=== PATIENT | female | born 1970 | race Caucasian/White ===

== ENCOUNTER 2018-01-28 02:35 | Day surgery (SDC) | payer OTHER ==
[~2018-01-28 02:35] MED LIST: AMIT50; ANTI-INFLAMMATORY; BIRTH CONTROL PILLS; CYCL10; DIET PILL; HYDACE5 PO; LEVSOD50 PO; NITR100CA PO; OMEP20ER PO
== END 2018-01-28 22:41 | disposition home or self-care (01) ==
LOC: MOI US 02:35
PROC: BH01ZZZ Plain Radiography of Left Breast (ICD-10-PCS; principal; 2018-01-28)
DX: C50.412 Malignant neoplasm of upper-outer quadrant of left female breast (principal)
CPT/HCPCS: 19285; 77065; G0279

== ENCOUNTER 2018-02-07 07:59 | Day surgery (SDC) | payer OTHER ==
[~2018-02-07] VITALS: Ht 170.2 cm; Wt 124.3 kg
[~2018-02-07 07:59] MED LIST changes: +CYCL10 PO; +HYDPAM25 PO; +Hair, Skin & N1 EACH PO; +IBUP800 PO; +LEVSOD150 PO; +Omeprazole20 M1 PO; +TRAZ100 PO; +Ziac 10-6.25 M1 EACH PO
--- NOTE | 2018-02-07 09:46 | NUR ---
PT ADMITTED TO [facility]. AGREES WITH PLANNED SURGERY. MEDS, ALLERGIES AND HX REVIEWED. LUNG SOUNDS CLEAR.
--- NOTE | 2018-02-07 11:15 | NUR ---
02/07/18 1115 Emil Crowe ASSUMED CARE OF PATIENT
--- NOTE | 2018-02-07 13:28 | NUR ---
ASSUMED PT CARE. LEFT CHEST WITH DERMABOND INTACT. NO ACUTE BLEEDING-MILD BRUISING AND HEMATOMA NOTED. BREAST BINDER IN PLACE. PT REPORTS 08/17 INCISIONAL PAIN-MED WITH FENTANYL 50 MCG IVP X 1. SEE EMAR.
--- NOTE | 2018-02-07 14:40 | NUR ---
Patient up to Ambulate independently. Gait steady.DERMABOND AND GAUZE TO LEFT BREAST C/D/I. PT STATES PAIN 5/10 WHICH IS A TOLERABLE LEVEL FOR HER. Discharge instructions reviewed with patient. Patient verbalizes understanding. Copy given to patient to take home. Discharged via wheelchair to private car for ride home.
== END 2018-02-07 14:40 | disposition home or self-care (01) ==
LOC: RAD 07:59 → ORSCMMR 08:00 → RAD 08:30 → NM 09:00 → RAD 14:40
DX: C50.412 Malignant neoplasm of upper-outer quadrant of left female breast (principal)
CPT/HCPCS: 38792; 76098; 88304; 88307; 88342; A9520; J0690; J1100; J1885; J2405; J3010; J7120; Q9968

== ENCOUNTER 2018-04-19 12:46 | Day surgery (SDC) | payer OTHER ==
[~2018-04-19] VITALS: Ht 170.2 cm; Wt 122.7 kg
--- NOTE | 2018-04-19 13:41 | NUR ---
04/19/18 1341 Maricarmen Borges DISCUSSION WITH DR FLOWER ABOUT CONSCIOUS SEDATION THAT WAS ORDERED OR OK TO USE PROPOFOL. DR FLOWER UNAWARE OF WHERE THE MESSAGE ON THE SCHEDULE CAME FROM REGARDING CONSCIOUS SEDATION. I CONFIRMED WITH DR FLOWER THAT I AM COMFORTABLE GIVING PROPOFOL SEDATION AND HE AGREES TO PROCEED WITH THIS PLAN.
--- NOTE | 2018-04-19 15:26 | NUR ---
04/19/18 1526 Aj West NURSE ASSISTED PATIENT WALK OUT TO HER RIDE HOME.
== END 2018-04-19 15:18 | disposition home or self-care (01) ==
LOC: ORSCSDS 12:46
PROVIDERS: Surgery
PROC: 0DJD8ZZ Inspection of Lower Intestinal Tract, Via Natural or Artificial Opening Endoscopic (ICD-10-PCS; principal; 2018-04-19 14:00)
DX: R19.7 Diarrhea, unspecified (principal); Z15.09 Genetic susceptibility to other malignant neoplasm; Z84.81 Family history of carrier of genetic disease; Z85.3 Personal history of malignant neoplasm of breast; E03.9 Hypothyroidism, unspecified; Z87.891 Personal history of nicotine dependence; E66.01 Morbid (severe) obesity due to excess calories; Z68.41 Body mass index [BMI] 40.0-44.9, adult; Z79.899 Other long term (current) drug therapy
CPT/HCPCS: J2250; J7120

== ENCOUNTER 2018-07-18 07:27 | Day surgery (SDC) | payer OTHER ==
--- NOTE | 2018-07-18 08:20 | NUR ---
History, Chart, Medications and Allergies reviewed before start of procedure. Lungs clear T/O to Auscultation.
--- NOTE | 2018-07-18 12:00 | NUR ---
PT ARRIVED TO ROOM 230 FROM PACU PT IS S/P KENDRA PT REPORTS PAIN 6/10 PT HAS STERI STRIPS TO ABD WITH SCANT SEROSANG DRAINAGE PT HAS SEBASTIEN PAD ALSO SCANT DRAINAGE PT DENIES NAUSEA CL GIVEN TO START PT ORIENTED TO ROOM LAYOUT
--- NOTE | 2018-07-18 13:33 | NUR ---
PT STATED THAT THE PO PAIN MEDS STILL HAVE NOT HELPED THE PAIN IV DILAUDID GIVEN PT S/O AT BEDSIDE
--- NOTE | 2018-07-18 16:12 | NUR ---
07/18/18 1612 Andra Carrillo CHART AUDITS. ENTERED [place] RN INSTRUCTIONS.
--- NOTE | 2018-07-18 17:30 | NUR ---
pt dangle to edge of the bed to eat dinner
[2018-07-19 04:18] LABS: BASOPHILS ABSOLUTE AUTO 0.02 K/mm3 (0.00-0.23); BASOPHILS PERCENT AUTO 0 % (0-2); EOSINOPHILS PERCENT AUTO 0 % (0-6); Hematocrit 36.3 % (33.0-51.0); Hemoglobin 11.9 g/dL (11.5-16.0); IMMATURE GRAN ABSOLUTE AUTO 0.05 K/mm3 (0.00-0.10); IMMATURE GRAN PERCENT AUTO 1 % (0-1); LYMPHOCYTES ABSOLUTE AUTO 0.48 K/mm3 (0.84-5.20); LYMPHOCYTES PERCENT AUTO 6 % (21-46); MONOCYTES ABSOLUTE AUTO 0.43 K/mm3 (0.16-1.47); MONOCYTES PERCENT AUTO 5 % (4-13); Mean Corpuscular HGB 28.7 pg (26.0-34.0); Mean Corpuscular HGB Conc 32.8 g/dL (31.5-36.5); Mean Corpuscular Volume 88 fL (80-100); Mean Platelet Volume 9.7 fL (9.1-12.4); NEUTROPHILS ABSOLUTE AUTO 7.24 K/mm3 (1.96-9.15); NEUTROPHILS PERCENT AUTO 88 % (41-73); Platelet Count 223 K/mm3 (150-400); RDW Coefficient Variation 13.9 % (11.7-14.2); RDW Standard Deviation 44.4 fL (35.1-46.3); Red Blood Cell Count 4.15 M/mm3 (3.80-5.20); White Blood Cell Count 8.22 K/mm3 (4.00-11.30)
--- NOTE | 2018-07-19 07:15 | NUR ---
DR Celine RAPP BY TO SEE PT SITTING UP ON EDGE OF THE BED [place] REMOVED PASSING FLATUS MEDS GIVEN PAIN MIN 2-04/17
--- NOTE | 2018-07-19 07:30 | NUR ---
SUMMARY PT WITH ONLY SCANT VAG BLD TONIGHT. [place] WITH CLR YELLOW THIS SHIFT. PT WITH NO C/O NAUSEA. UP IN HALLS TONIGHT WITH HARP MAKER. POSSIBLE HOME TODAY.
--- NOTE | 2018-07-19 07:50 | NUR ---
pt voided pvr min
[2018-07-19] MEDS ORDERED: Norco 5-325 Ta1 EACH PO (08:16)
--- NOTE | 2018-07-19 09:07 | NUR ---
pt in the shower
--- NOTE | 2018-07-19 09:50 | NUR ---
pt out of shower had scant void discussed with pt to call with next void and we will bladder scan again if unable to empty will poss place cath
--- NOTE | 2018-07-19 10:53 | NUR ---
PT VOIDED 100 ML PVR 5 ML WILL GO OVER DISCHARGE PAPERS OK TO GO HOME
--- NOTE | 2018-07-19 11:10 | NUR ---
discharge instructions reviewed rx given
--- NOTE | 2018-07-19 11:30 | NUR ---
amb to car no acute changes to cond
== END 2018-07-19 11:31 | disposition home or self-care (01) ==
LOC: ORSCMMR 07:27 → ORD 09:00 → SURS 12:40 → ORSCMMR 07-19 11:31
PROVIDERS: Obstetrics & Gynecology
PROC: 0UT9FZZ Resection of Uterus, Via Natural or Artificial Opening With Percutaneous Endoscopic Assistance (ICD-10-PCS; principal; 2018-07-18 09:00)
PROC: 0UT2FZZ Resection of Bilateral Ovaries, Via Natural or Artificial Opening With Percutaneous Endoscopic Assistance (ICD-10-PCS; principal; 2018-07-18 09:00)
PROC: 0UT7FZZ Resection of Bilateral Fallopian Tubes, Via Natural or Artificial Opening With Percutaneous Endoscopic Assistance (ICD-10-PCS; principal; 2018-07-18 09:00)
DX: Z15.09 Genetic susceptibility to other malignant neoplasm (principal); Z85.3 Personal history of malignant neoplasm of breast; E03.9 Hypothyroidism, unspecified; K21.9 Gastro-esophageal reflux disease without esophagitis; Z79.899 Other long term (current) drug therapy
CPT/HCPCS: 36415; 85025; 88108; 88307; A9270-GY; J0690; J1100; J1170; J1885; J2250; J2405; J2704; J2710; J3010; J7120

== ENCOUNTER 2019-04-13 11:40 | Day surgery (SDC) | payer OTHER ==
[~2019-04-13] VITALS: Ht 170.2 cm; Wt 122.4 kg
[~2019-04-13 11:40] MED LIST changes: +ANAS1; +GABA600; +Norco 5-325 Ta1 EACH PO; +SYNTHROID175 MC1
== END 2019-04-13 14:24 | disposition home or self-care (01) ==
LOC: ORSCSDS 11:40
PROVIDERS: Surgery
PROC: 0DBH8ZX Excision of Cecum, Via Natural or Artificial Opening Endoscopic, Diagnostic (ICD-10-PCS; principal; 2019-04-13 13:00)
DX: Z84.81 Family history of carrier of genetic disease (principal); E03.9 Hypothyroidism, unspecified; K21.9 Gastro-esophageal reflux disease without esophagitis; F32.9 Major depressive disorder, single episode, unspecified; Z79.899 Other long term (current) drug therapy
CPT/HCPCS: 88305; J2250; J2704; J7120

== ENCOUNTER 2020-08-22 09:22 | Day surgery (SDC) | payer OTHER ==
[~2020-08-22] VITALS: Ht 170.2 cm; Wt 125.6 kg
[~2020-08-22 09:22] MED LIST changes: +ANASTROZOLE1 M4 PO; +BISOPROLOL-HCT1 EAC1 PO; +EUTHYROX175 MCG PO; +GABA300 PO; +GABAPENTIN600 MG PO; +HYDHCL25 PO; +TRAZ50 PO
--- NOTE | 2020-08-22 12:34 | NUR ---
08/22/20 1234 DANITA FLOWER ANESTHESIA CONSULT WITH AND CONCLUDED NURSE SEDATION WOULD BE ACCEPTIBLE.
--- NOTE | 2020-08-22 12:35 | NUR ---
08/22/20 DANITA DUENAS WAS CONSULTED ABOUT HYPTERTENSION DURING END OF PROCEDURE.
== END 2020-08-22 12:38 | disposition home or self-care (01) ==
LOC: ORSCSDS 09:22
PROVIDERS: Surgery
PROC: 0DJD8ZZ Inspection of Lower Intestinal Tract, Via Natural or Artificial Opening Endoscopic (ICD-10-PCS; principal; 2020-08-22 11:15)
DX: Z12.11 Encounter for screening for malignant neoplasm of colon (principal); Z15.09 Genetic susceptibility to other malignant neoplasm; I10 Essential (primary) hypertension; Z87.891 Personal history of nicotine dependence; E66.01 Morbid (severe) obesity due to excess calories; Z68.41 Body mass index [BMI] 40.0-44.9, adult; Z79.899 Other long term (current) drug therapy
CPT/HCPCS: J0330; J0461; J2250; J2405; J2704; J7120

== ENCOUNTER 2022-07-03 06:11 | Day surgery (SDC) | payer OTHER ==
[~2022-07-03] VITALS: Ht 170.2 cm; Wt 124.9 kg
[2022-07-03] MEDS ORDERED: ESCI10 (06:33)
[2022-07-03] MEDS ORDERED: Calcium Carbon500 MG (06:34)
[2022-07-03] MEDS ORDERED: BUPR75 (06:34)
[2022-07-03] MEDS ORDERED: VITAMIN D310 MC4 (06:34)
[2022-07-03 08:55] VITALS: BP 138/85
== END 2022-07-03 08:57 | disposition home or self-care (01) ==
LOC: ORSCSDS 06:11
PROVIDERS: Surgery
PROC: 0DB48ZX Excision of Esophagogastric Junction, Via Natural or Artificial Opening Endoscopic, Diagnostic (ICD-10-PCS; principal; 2022-07-03 07:30)
PROC: 0DB78ZX Excision of Stomach, Pylorus, Via Natural or Artificial Opening Endoscopic, Diagnostic (ICD-10-PCS; principal; 2022-07-03 07:30)
PROC: 0DJD8ZZ Inspection of Lower Intestinal Tract, Via Natural or Artificial Opening Endoscopic (ICD-10-PCS; principal; 2022-07-03 07:30)
DX: Z15.09 Genetic susceptibility to other malignant neoplasm (principal); Z85.3 Personal history of malignant neoplasm of breast; K29.70 Gastritis, unspecified, without bleeding; I10 Essential (primary) hypertension; K21.9 Gastro-esophageal reflux disease without esophagitis; Z87.891 Personal history of nicotine dependence; E03.9 Hypothyroidism, unspecified; E66.01 Morbid (severe) obesity due to excess calories; Z68.41 Body mass index [BMI] 40.0-44.9, adult; F32.A Depression, unspecified; Z79.899 Other long term (current) drug therapy
CPT/HCPCS: 43239; G0105; 88305; 88342; J2001; J2704; J7120

== ENCOUNTER 2024-06-06 11:19 | Day surgery (SDC) | payer OTHER ==
[~2024-06-06] VITALS: Ht 170.2 cm; Wt 97.4 kg
[~2024-06-06 11:19] MED LIST changes: +BUPR75; +Calcium Carbon500 MG; +ESCI10; +Lactated Ringer's 1,000 ML IV ONE; +VITAMIN D310 MC4
[2024-06-06] MEDS ORDERED: BISOPROLOL-HCT1 EAC3 (13:05)
[2024-06-06] MEDS ORDERED: Triamcinolone A15 G3 (13:06)
[2024-06-06] MEDS ORDERED: Adipex-P37.5 M1 (13:07)
[2024-06-06] MEDS ORDERED: LETROZOLE2.5 M3 (13:07)
[2024-06-06] MEDS ORDERED: Neurontin800 MG (13:07)
[2024-06-06] MEDS ORDERED: Lidocaine 2% 5 ML SDV ONE (13:10)
[2024-06-06] MEDS ORDERED: propofoL 50 ML IV ONE ×2 (13:10→13:29)
[2024-06-06] MEDS ORDERED: Lactated Ringer's 1,000 ML IV ONE (13:19)
[2024-06-06 14:29] VITALS: BP 150/92
== END 2024-06-06 14:24 | disposition home or self-care (01) ==
LOC: ORSCSDS 11:19
PROVIDERS: Surgery
PROC: 0DBH8ZX Excision of Cecum, Via Natural or Artificial Opening Endoscopic, Diagnostic (ICD-10-PCS; principal; 2024-06-06 13:15)
DX: Z15.09 Genetic susceptibility to other malignant neoplasm (principal); K63.5 Polyp of colon; F32.A Depression, unspecified; I10 Essential (primary) hypertension; Z85.3 Personal history of malignant neoplasm of breast; E03.9 Hypothyroidism, unspecified; K21.9 Gastro-esophageal reflux disease without esophagitis; E66.9 Obesity, unspecified; Z68.34 Body mass index [BMI] 34.0-34.9, adult; Z87.891 Personal history of nicotine dependence; Z79.899 Other long term (current) drug therapy
CPT/HCPCS: 88305; J2704; J7120